=== PATIENT | male | born 1945 ===

== ENCOUNTER 2022-06-25 15:50 | Inpatient (IN) | payer MEDICARE, SELFPAY ==
[2022-06-25 20:26] VITALS: BMI 23.0
[2022-06-25] MEDS ORDERED: Dextrose 5% in Water 1,000 ML IV PRN (21:45)
[2022-06-25] MEDS ORDERED: Ondansetron PF 4 MG/2 ML Vial IVP PRN (21:45)
[2022-06-25] MEDS ORDERED: Acetaminophen 650 MG Suppository PR PRN (21:45)
[2022-06-25] MEDS ORDERED: Ondansetron ODT 4 MG TAB PO PRN (21:45)
[2022-06-25] MEDS ORDERED: Acetaminophen 325 MG TAB PO PRN (21:45)
[2022-06-25] MEDS ORDERED: Dextrose 50% Abboject 50 ML SYRINGE SLOW IVP PRN (21:45)
[2022-06-25] MEDS ORDERED: Piperacillin/Tazobactam 3.375 GM in Sodium Chloride 0.9% 100 ML IVPB SCH (22:15)
[2022-06-26] MEDS ORDERED: Piperacillin/Tazobactam 3.375 GM in Sodium Chloride 0.9% 100 ML IVPB SCH ×3 (02:00→10:00)
[2022-06-26] MEDS ORDERED: Apixaban 2.5 MG TAB PO SCH ×3 (03:32→21:00)
[2022-06-26] MEDS: HumaLOG 300 UNITS/3 ML VIAL SC PRN ×4 (04:31→20:42)
[2022-06-26 06:20] LABS: #Eosinphils 0.1 thou/uL (0.0-0.7); #Lymphocytes 1.4 thou/uL (1.20-3.40); #Monocytes 1.3 thou/uL (0.11-0.59); #Neutrophils 7.6 thou/uL (1.40-6.50); %Basophils 0.1 % (0.0-1.0); %Eosinophils 1.3 % (0.0-10.0); %Neutrophils 73.5 % (42.0-75.0); Hemoglobin 11.5 g/dL (14.0-18.0); Mean Corpuscular HGB CONC 32.7 g/dL (32.0-36.0); Mean Corpuscular Hemoglobin 28.7 pg (27.0-31.0); Mean Corpuscular Volume 87.8 fL (78.0-98.0); Mean Platelet Volume 8.6 fL (7.4-10.4); Platelet Count 261 thou/uL (130-400); RBC Distribution Width 11.7 % (11.5-14.5); Red Blood Cell (RBC) Count 4.02 mill/uL (4.70-6.10); White Blood Cell (WBC) Count 10.4 thou/uL (4.8-10.8)
[2022-06-26 06:52] LABS: Anion Gap 13 mmol/L (10-20); BUN (Urea Nitrogen) 9 mg/dL (8.4-25.7); Calc. Creatinine Clearance 70 mL/min (70-130); Calcium 9.8 mg/dL (7.8-10.44); Carbon Dioxide 26 mmol/L (23-31); Chloride 104 mmol/L (98-107); Estimated GFR 83; Glucose 206 mg/dL (83-110); Sodium 139 mmol/L (136-145)
[2022-06-26] MEDS: Cefepime 1 GM in Sodium Chloride 0.9% 100 ML IVPB SCH ×2 (08:43→20:30)
[2022-06-26] MEDS: Aspirin Chewable 81 MG TAB PO SCH (08:48)
[2022-06-26] MEDS: Clopidogrel Bisulfate 75 MG TAB PO SCH (08:48)
[2022-06-26] MEDS: Ezetimibe 10 MG TAB PO SCH (08:48)
[2022-06-26] MEDS: Furosemide 40 MG TAB PO SCH (08:49)
[2022-06-26] MEDS ORDERED: Cefepime 1 GM in Sodium Chloride 0.9% 100 ML IVPB SCH (09:00)
[2022-06-26] MEDS ORDERED: Vancomycin 1.5 GRAM/300 ML BAG 1.5 GM in Premix Bag 1 BAG IVPB SCH (09:00)
[2022-06-26] MEDS ORDERED: Lorazepam 0.5 MG TAB PO PRN (15:14)
[2022-06-26] MEDS: Vancomycin 1 GM in Premix Bag 1 BAG IVPB SCH (20:30)
[2022-06-26] MEDS: Calcium Carbonate 600 MG + Vit D TAB PO SCH (20:30)
[2022-06-26] MEDS: Atorvastatin Calcium 40 MG TAB PO SCH (20:30)
[2022-06-27] MEDS: HumaLOG 300 UNITS/3 ML VIAL SC PRN ×4 (05:21→21:27)
[2022-06-27] MEDS: Cefepime 1 GM in Sodium Chloride 0.9% 100 ML IVPB SCH ×2 (08:16→21:26)
[2022-06-27] MEDS: Furosemide 40 MG TAB PO SCH (08:17)
[2022-06-27] MEDS: Multivitamin W/ Minerals 1 TAB PO SCH (08:17)
[2022-06-27] MEDS: Clopidogrel Bisulfate 75 MG TAB PO SCH (08:17)
[2022-06-27] MEDS: Aspirin Chewable 81 MG TAB PO SCH (08:17)
[2022-06-27] MEDS: Apixaban 2.5 MG TAB PO SCH ×2 (08:17→21:27)
[2022-06-27] MEDS: Metoprolol Tartrate 50 MG TAB PO SCH (08:17)
[2022-06-27] MEDS: Calcium Carbonate 600 MG + Vit D TAB PO SCH ×2 (08:17→21:26)
[2022-06-27] MEDS: Tamsulosin HCl 0.4 MG CAP PO SCH (08:18)
[2022-06-27] MEDS: Ezetimibe 10 MG TAB PO SCH (08:18)
[2022-06-27] MEDS: Vancomycin 1 GM in Premix Bag 1 BAG IVPB SCH ×2 (08:19→21:26)
[2022-06-27] MEDS: Lisinopril 2.5 MG TAB PO SCH (08:35)
[2022-06-27 20:20] LABS: Vancomycin, Trough 17.6 ug/mL
[2022-06-27] MEDS: Atorvastatin Calcium 40 MG TAB PO SCH (21:27)
[2022-06-28] MEDS: HumaLOG 300 UNITS/3 ML VIAL SC PRN ×2 (05:37→12:23)
[2022-06-28] MEDS: Lisinopril 2.5 MG TAB PO SCH (08:50)
[2022-06-28] MEDS: Multivitamin W/ Minerals 1 TAB PO SCH (08:51)
[2022-06-28] MEDS: Clopidogrel Bisulfate 75 MG TAB PO SCH (08:51)
[2022-06-28] MEDS: Metoprolol Tartrate 50 MG TAB PO SCH (08:51)
[2022-06-28] MEDS: Ezetimibe 10 MG TAB PO SCH (08:51)
[2022-06-28] MEDS: Tamsulosin HCl 0.4 MG CAP PO SCH (08:51)
[2022-06-28] MEDS: Calcium Carbonate 600 MG + Vit D TAB PO SCH (08:51)
[2022-06-28] MEDS: Aspirin Chewable 81 MG TAB PO SCH (08:51)
[2022-06-28] MEDS: Apixaban 2.5 MG TAB PO SCH (08:51)
[2022-06-28] MEDS: Furosemide 40 MG TAB PO SCH (08:52)
[2022-06-28] MEDS ORDERED: metFORMIN 500 MG TAB PO SCH (09:00)
[2022-06-28] MEDS ORDERED: Amoxicillin/Potassium Clav 875 MG TAB PO SCH (09:00)
[2022-06-28 14:52] VITALS: BP 111/65; TEMP 97.8
== END 2022-06-28 15:06 | DRG 301 ==
LOC: T4-A 20:00
PROVIDERS: ADMIT Internal Medicine; ATTEND Internal Medicine
DX: E11.52 Type 2 diabetes mellitus with diabetic peripheral angiopathy with gangrene (principal); E11.621 Type 2 diabetes mellitus with foot ulcer; I10 Essential (primary) hypertension; G89.29 Other chronic pain; I25.10 Atherosclerotic heart disease of native coronary artery without angina pectoris; L97.529 Non-pressure chronic ulcer of other part of left foot with unspecified severity; Z20.822 Contact with and (suspected) exposure to COVID-19; Z95.1 Presence of aortocoronary bypass graft; Z86.73 Personal history of transient ischemic attack (TIA), and cerebral infarction without residual deficits; Z88.8 Allergy status to other drugs, medicaments and biological substances; Z79.4 Long term (current) use of insulin; Z79.82 Long term (current) use of aspirin; Z79.899 Other long term (current) drug therapy; Z79.01 Long term (current) use of anticoagulants; Z79.84 Long term (current) use of oral hypoglycemic drugs; Z87.891 Personal history of nicotine dependence
CPT/HCPCS: 36415; 36416; 80048; 80202; 82565; 85025; 97139; J0692; J1815; J2543; J3370; J3490; U0003; U0005